=== PATIENT | female | born 1995 | race Hispanic/Latino ===

== ENCOUNTER 2022-10-27 15:19 | Inpatient (IN) | payer OTHER ==
[2022-10-27] MEDS ORDERED: Lidocaine 1% (PF) 30 ML VIAL SC PRN (16:18)
[2022-10-27] MEDS ORDERED: Tranexamic Acid 1,000 MG in Sodium Chloride 0.9% 250 ML 250 ML IVPB PRN (16:18)
[2022-10-27] MEDS ORDERED: Misoprostol 200 MCG TAB PR PRN (16:18)
[2022-10-27] MEDS ORDERED: Promethazine HCl 25 MG/ML VIAL IM PRN (16:18)
[2022-10-27] MEDS ORDERED: Carboprost 250 MCG/ML AMP IM PRN (16:18)
[2022-10-27] MEDS ORDERED: Ondansetron PF 4 MG/2 ML Vial IVP PRN (16:18)
[2022-10-27] MEDS ORDERED: hydrALAZINE 20 MG/ML VIAL SLOW IVP PRN (16:18)
[2022-10-27] MEDS ORDERED: Butorphanol Tartrate 1 MG/ML VIAL SLOW IVP PRN (16:18)
[2022-10-27] MEDS ORDERED: Methylergonovine 0.2 MG/ML VIAL IM PRN (16:18)
[2022-10-27] MEDS ORDERED: Acetaminophen 500 MG TAB PO PRN (16:18)
[2022-10-27] MEDS ORDERED: NS w/ Oxytocin 30 units 500 ML IV SCH (16:30)
[2022-10-27] MEDS ORDERED: Misoprostol 100 MCG TAB VAG SCH (16:30)
[2022-10-27 17:10] VITALS: BMI 27.5
[2022-10-27] MEDS: Lactated Ringer's 1,000 ML IV SCH (17:33)
[2022-10-27 18:10] LABS: Hemoglobin 12.4 g/dL (12.0-15.5); Mean Corpuscular HGB CONC 32.8 g/dL (32.0-36.0); Mean Corpuscular Hemoglobin 28.8 pg (27.0-33.0); Mean Corpuscular Volume 87.7 fl (81.6-98.3); Mean Platelet Volume 9.3 fl (7.4-10.4); Platelet Count 269 10x3/uL (150-450); RBC Distribution Width 13.4 % (11.5-14.5); Red Blood Cell (RBC) Count 4.31 10x6/uL (3.90-5.03)
[2022-10-27 18:44] LABS: Syphilis Antibody Nonreactive (Nonreactive); Syphilis Antibody Index 0.03 S/CO (<1.00 Non-Reactive)
[2022-10-27 18:45] LABS: HBSAg Index 0.11 S/CO (0-0.99); Hep B Surf Ag Non-Reactive S/CO (NonReactive)
[2022-10-27 22:12] LABS: SARS-CoV-2 NAA Rapid Test Not Detected (NotDetected)
[2022-10-28] MEDS ORDERED: CEFAZOLIN 2 GM VIAL ONE (02:49)
[2022-10-28] MEDS ORDERED: Azithromycin 500 MG VIAL ONE (02:49)
[2022-10-28] MEDS ORDERED: Fentanyl 100 MCG/2 ML VIAL ONE ×2 (02:56→03:35)
[2022-10-28] MEDS ORDERED: Succinylcholine 200 MG/10 ml SYRINGE FS ONE (02:56)
[2022-10-28] MEDS ORDERED: Lidocaine 2% PF 100 mg/5 ml Syringe ONE (02:56)
[2022-10-28] MEDS ORDERED: PROPOFOL 20 ML ONE (02:56)
[2022-10-28] MEDS ORDERED: Oxytocin 10 UNITS/ML VIAL ONE (03:18)
[2022-10-28] MEDS ORDERED: Ondansetron PF 4 MG/2 ML Vial ONE (03:18)
[2022-10-28] MEDS ORDERED: Dexamethasone 4 mg/ml Vial ONE (03:18)
[2022-10-28 03:25] LABS: pH (Cord, venous) 7.266 (7.250-7.350)
[2022-10-28] MEDS ORDERED: Ketorolac Tromethamine 30 MG/ML VIAL ONE (03:50)
[2022-10-28] MEDS ORDERED: diphenhydrAMINE 50 MG/ML VIAL IVP PRN (04:08)
[2022-10-28] MEDS ORDERED: Promethazine HCl 25 MG/ML VIAL IM PRN ×3 (04:08→06:46)
[2022-10-28] MEDS ORDERED: Ondansetron PF 4 MG/2 ML Vial IVP PRN ×2 (04:08→06:46)
[2022-10-28] MEDS ORDERED: HYDROmorphone 10 mg/100 ml CADD IVPB PRN (04:08)
[2022-10-28] MEDS ORDERED: diphenhydrAMINE 25 MG CAP PO PRN ×2 (04:08→06:46)
[2022-10-28] MEDS ORDERED: diphenhydrAMINE 50 MG/ML VIAL IM PRN (04:08)
[2022-10-28] MEDS ORDERED: Naloxone HCl 0.4 mg/ml Vial IV PRN (04:08)
[2022-10-28] MEDS ORDERED: Zolpidem Tartrate 5 MG TAB PO PRN (04:08)
[2022-10-28] MEDS ORDERED: Ondansetron HCl/PF 4 MG/2 ML Vial IVP PRN (04:09)
[2022-10-28] MEDS ORDERED: Meperidine HCl/PF 25 MG/ML VIAL SLOW IVP PRN (04:09)
[2022-10-28] MEDS ORDERED: Communication Order-Pharmacy FS SCH (04:15)
[2022-10-28] MEDS ORDERED: Meperidine HCl/PF 25 MG/ML VIAL ONE (04:25)
[2022-10-28] MEDS ORDERED: HYDROmorphone/PF 10 MG in Sodium Chloride 0.9% 49 ML IVPB PRN (04:30)
[2022-10-28] MEDS ORDERED: hydrALAZINE 20 MG/ML VIAL SLOW IVP PRN (06:46)
[2022-10-28] MEDS ORDERED: Acetaminophen 325 MG TAB PO PRN (06:46)
[2022-10-28] MEDS ORDERED: Bisacodyl 10 MG SUPP PR PRN (06:46)
[2022-10-28] MEDS ORDERED: Methylergonovine 0.2 MG/ML VIAL IM PRN (06:46)
[2022-10-28] MEDS ORDERED: Misoprostol 200 MCG TAB PR PRN (06:46)
[2022-10-28] MEDS ORDERED: NS w/ Oxytocin 30 units 500 ML IV SCH (06:46)
[2022-10-28] MEDS: Lactated Ringer's 1,000 ML IV SCH ×4 (08:37→22:45)
[2022-10-28] MEDS: Docusate 100 MG CAP PO SCH ×2 (08:41→21:19)
[2022-10-28] MEDS: Ferrous Sulfate 325 MG TAB PO SCH ×2 (08:41→21:47)
[2022-10-28] MEDS: Prenatal Vitamin 1 TAB PO SCH (08:41)
[2022-10-28] MEDS: Ibuprofen 800 MG TAB PO SCH ×2 (10:01→19:15)
[2022-10-28] MEDS: Simethicone Chewable 80 MG TAB PO PRN ×2 (15:14→21:24)
[2022-10-29] MEDS: Ibuprofen 800 MG TAB PO SCH ×3 (01:04→21:41)
[2022-10-29 04:34] LABS: Hemoglobin 9.3 g/dL (12.0-15.5); Mean Corpuscular HGB CONC 32.9 g/dL (32.0-36.0); Mean Corpuscular Hemoglobin 29.3 pg (27.0-33.0); Mean Corpuscular Volume 89.3 fl (81.6-98.3); Mean Platelet Volume 9.8 fl (7.4-10.4); Platelet Count 230 10x3/uL (150-450); RBC Distribution Width 13.5 % (11.5-14.5); Red Blood Cell (RBC) Count 3.17 10x6/uL (3.90-5.03); White Blood Cell (WBC) Count 15.9 10x3/uL (3.5-10.5)
[2022-10-29] MEDS: Simethicone Chewable 80 MG TAB PO PRN (05:45)
[2022-10-29] MEDS: Lactated Ringer's 1,000 ML IV SCH (06:00)
[2022-10-29] MEDS ORDERED: Boostrix 0.5 ML (Tdap) VIAL (>/=7 yrs of age) IM ONE (06:46)
[2022-10-29] MEDS ORDERED: HYDROcodone/Acetaminophen 5/325 mg Tablet PO PRN (12:41)
[2022-10-29] MEDS: HYDROcodone/Acetaminophen 5/325 mg Tablet PO PRN ×2 (13:35→18:48)
[2022-10-29] MEDS: Ferrous Sulfate 325 MG TAB PO SCH (13:35)
[2022-10-29] MEDS: Docusate 100 MG CAP PO SCH ×2 (13:35→21:35)
[2022-10-30] MEDS: Ibuprofen 800 MG TAB PO SCH ×2 (04:29→13:23)
[2022-10-30] MEDS: Lactated Ringer's 1,000 ML IV SCH ×2 (04:35→07:49)
[2022-10-30] MEDS: Prenatal Vitamin 1 TAB PO SCH ×2 (07:48→08:50)
[2022-10-30] MEDS: Ferrous Sulfate 325 MG TAB PO SCH ×2 (07:49→08:50)
[2022-10-30 08:09] VITALS: BP 102/53; TEMP 97.6
[2022-10-30] MEDS: HYDROcodone/Acetaminophen 5/325 mg Tablet PO PRN (08:50)
[2022-10-30] MEDS: Docusate 100 MG CAP PO SCH (08:50)
== END 2022-10-30 15:00 | disposition home or self-care (01) | DRG 788 ==
LOC: CSHLD/OP 15:19 → CSHLD 20:07 → CSHPP 10-28 07:40
PROVIDERS: ADMIT Obstetrics & Gynecology; ATTEND Obstetrics & Gynecology
PROC: 3E0P7VZ Introduction of Hormone into Female Reproductive, Via Natural or Artificial Opening (ICD-10-PCS; 2022-10-27)
PROC: 10907ZC Drainage of Amniotic Fluid, Therapeutic from Products of Conception, Via Natural or Artificial Opening (ICD-10-PCS; 2022-10-27)
PROC: 10H07YZ Insertion of Other Device into Products of Conception, Via Natural or Artificial Opening (ICD-10-PCS; 2022-10-27)
PROC: 10D00Z1 Extraction of Products of Conception, Low, Open Approach (ICD-10-PCS; principal; 2022-10-28)
DX: O36.5930 Maternal care for other known or suspected poor fetal growth, third trimester, not applicable or unspecified (principal); Z37.0 Single live birth; Z3A.38 38 weeks gestation of pregnancy; Z20.822 Contact with and (suspected) exposure to COVID-19; Z87.440 Personal history of urinary (tract) infections; Z90.721 Acquired absence of ovaries, unilateral; O76 Abnormality in fetal heart rate and rhythm complicating labor and delivery; O69.81X0 Labor and delivery complicated by cord around neck, without compression, not applicable or unspecified
CPT/HCPCS: 36415; 51702; 82805; 85027; 86780; 86850; 86900; 86901; 87340; J0595; J1100; J1170; J1885; J2001; J2175; J2405; J2590; J2704; J3010; J3490; J7120; U0002